=== PATIENT | female | born 1980 | race Caucasian/White ===

== ENCOUNTER → 2017-08-18 | Outpatient (CLI) | payer BC | END | disposition home or self-care (01) | LOC: C.PAPS 18:13 | PROVIDERS: ATTEND Nurse Practitioner | DX: Z01.419 Encounter for gynecological examination (general) (routine) without abnormal findings (principal) ==

== ENCOUNTER → 2017-11-03 | Outpatient (CLI) | payer BC | END | disposition home or self-care (01) | LOC: C.LABSPEC 10:43 | PROVIDERS: ATTEND Nurse Practitioner | DX: J02.9 Acute pharyngitis, unspecified (principal) ==

== ENCOUNTER → 2017-11-19 | Outpatient (CLI) | payer BC ==
[2017-11-19 12:24] LABS: HEMATOCRIT 41.7 % (37-47); HEMOGLOBIN 14.2 g/dL (12.0-16.0); MEAN CELL VOLUME 86.2 fL (80-100); MEAN CORPUSCULAR HEMOGLOBIN 29.3 pg (25-34); MEAN CORPUSCULAR HGB CONC 34.1 g/dl (32-36); MEAN PLATELET VOLUME 12.5 fL (7.4-10.4); PLATELET COUNT 248 K/uL (130-400); RED CELL DISTRIBUTION WIDTH CV 12.6 % (11.5-14.5); RED CELL DISTRIBUTION WIDTH SD 39.7 fL (36.4-46.3); WHITE BLOOD COUNT 7.02 K/uL (4.8-10.8)
[2017-11-19 12:47] LABS: BLOOD UREA NITROGEN 11 mg/dl (7-18); CARBON DIOXIDE 26 mmol/L (21-32); CREATININE 0.75 mg/dl (0.60-1.20); GLUCOSE 87 mg/dl (70-99); POTASSIUM 3.5 mmol/L (3.5-5.1); SODIUM 137 mmol/L (136-145)
== END | disposition home or self-care (01) ==
LOC: C.LABBFT 10:42
PROVIDERS: ATTEND Nurse Practitioner
DX: Z13.220 Encounter for screening for lipoid disorders (principal); R00.2 Palpitations

== ENCOUNTER → 2017-12-04 | Outpatient (CLI) | payer BC ==
[2017-12-04 12:43] LABS: BLOOD UREA NITROGEN 13 mg/dl (7-18); CALCIUM 9.2 mg/dl (8.5-10.1); CARBON DIOXIDE 28 mmol/L (21-32); CREATININE 0.76 mg/dl (0.60-1.20); GLUCOSE 77 mg/dl (70-99); POTASSIUM 4.1 mmol/L (3.5-5.1); SODIUM 137 mmol/L (136-145)
[2017-12-04 12:47] LABS: CHOLESTEROL 213 mg/dl (0-200); LDL CHOLESTEROL CALCULATED 133 mg/dl
== END | disposition home or self-care (01) ==
LOC: C.LABBFT 09:54
PROVIDERS: ATTEND Nurse Practitioner
DX: Z13.220 Encounter for screening for lipoid disorders (principal); J45.909 Unspecified asthma, uncomplicated

== ENCOUNTER → 2017-12-17 | Outpatient (CLI) | payer BC ==
--- NOTE | 2017-12-17 18:12 | ECHOCARDIOGRAM REPORT ---
*NOTICE TO RECEIVING [employer] This information is strictly Confidential and protected under [place] law. [place] law prohibits you from making any further disclosure of this information unless further disclosure is expressly permitted by the written consent of the person to whom it pertains or is authorized by law. A general authorization for the release of medical or other information is not sufficient for this purpose. Hospital accepts no responsibility if the information is made available to any other person, INCLUDING THE PATIENT. Interpretation Summary * Name: SILVANA PENA Study Date: 12/17/2017 03:01 PM BP: 117/80 mmHg * Patient Location: [facility], [place], [facility] HR: 76 * : 1980 (M/d/yyyy) Gender: Female Height: 62 in * Age: 37 yrs Ethnicity: [place] Weight: 145 lb * Ordering Physician: Oly Rodriguez * Referring Physician: Oly Rodriguez * Performed By: Bety Strong RDCS * * Reason For Study: PALPITATIONS * BSA: 1.7 m2 * Normal biventricular systolic function. * Normal chamber dimensions. * No significant valvular abnormalities. Procedure Details * A complete two-dimensional transthoracic echocardiogram was performed (2D, M-mode, Doppler and color flow Doppler). Left Ventricle * The left ventricle is normal in size. * There is normal left ventricular wall thickness. * Left ventricular systolic function is normal. * Ejection Fraction = 60-65%. * The left ventricular wall motion is normal. Right Ventricle * The right ventricle is normal in size and function. Atria * The left atrial size is normal. * Right atrial size is normal. * No ASD detected; PFO is not assessed. Mitral Valve * The mitral valve is normal. * There is no mitral valve stenosis. * There is no mitral regurgitation noted. Tricuspid Valve * The tricuspid valve is normal. * There is no tricuspid stenosis. * There is trace tricuspid regurgitation. * Right ventricular systolic pressure is normal. Aortic Valve * The aortic valve is trileaflet. * The aortic valve opens well. * Aortic stenosis is absent. * No aortic regurgitation is present. Pulmonic Valve * The pulmonic valve is not well seen, but is grossly normal. * There is no pulmonic valvular stenosis. * Trace pulmonic valvular regurgitation. Great Vessels * The aortic root is normal size. Pericardium/Pleural * There is no pericardial effusion. Great Vessels * Normal inferior vena cava diameter and respiratory variation suggests normal central venous pressure. MMode 2D Measurements and Calculations IVSd 0.89 cm IVSs 1.2 cm LVIDd 4.1 cm LVIDs 2.7 cm LVPWd 0.80 cm LVPWs 1.4 cm IVS/LVPW 1.1 FS 35.5 % EDV(Teich) 76.1 ml ESV(Teich) 26.3 ml EF(Teich) 65.4 % EDV(cubed) 71.1 ml ESV(cubed) 19.0 ml EF(cubed) 73.2 % % IVS thick 29.4 % % LVPW thick 76.8 % LV mass(C)d 106.9 grams LV mass(C)dI 64.1 grams/m\S\2 LV mass(C)s 104.7 grams LV mass(C)sI 62.8 grams/m\S\2 SV(Teich) 49.8 ml SI(Teich) 29.9 ml/m\S\2 SV(cubed) 52.0 ml SI(cubed) 31.2 ml/m\S\2 Ao root diam 2.5 cm Ao root area 5.0 cm\S\2 LA dimension 3.0 cm LA/Ao 1.2 LVAd ap4 23.9 cm\S\2 LVLd ap4 7.7 cm EDV(MOD-sp4) 61.2 ml EDV(sp4-el) 63.2 ml LVAs ap4 13.2 cm\S\2 LVLs ap4 6.4 cm ESV(MOD-sp4) 24.8 ml ESV(sp4-el) 23.0 ml EF(MOD-sp4) 59.5 % EF(sp4-el) 63.6 % LVAd ap2 24.9 cm\S\2 LVLd ap2 7.5 cm EDV(MOD-sp2) 66.9 ml EDV(sp2-el) 70.3 ml LVAs ap2 13.4 cm\S\2 LVLs ap2 6.1 cm ESV(MOD-sp2) 25.5 ml ESV(sp2-el) 25.0 ml EF(MOD-sp2) 61.9 % EF(sp2-el) 64.4 % LVLd %diff -2.99 % EDV(MOD-bp) 63.8 ml LVLs %diff -6.04 % ESV(MOD-bp) 25.4 ml EF(MOD-bp) 60.1 % SV(MOD-sp4) 36.4 ml SI(MOD-sp4) 21.8 ml/m\S\2 SV(MOD-sp2) 41.4 ml SI(MOD-sp2) 24.8 ml/m\S\2 SV(MOD-bp) 38.4 ml SI(MOD-bp) 23.0 ml/m\S\2 SV(sp4-el) 40.2 ml SI(sp4-el) 24.1 ml/m\S\2 SV(sp2-el) 45.3 ml SI(sp2-el) 27.2 ml/m\S\2 Doppler Measurements and Calculations MV E max liam 80.4 cm/sec MV A max liam 58.0 cm/sec MV E/A 1.4 MV dec time 0.26 sec Ao V2 max 154.6 cm/sec Ao max PG 9.6 mmHg Ao max PG (full) 5.9 mmHg LV V1 max PG 3.7 mmHg LV V1 max 96.3 cm/sec TR max liam 142.5 cm/sec
== END | disposition home or self-care (01) ==
LOC: C.CPL 14:49
PROVIDERS: ATTEND Nurse Practitioner
DX: R00.2 Palpitations (principal)